=== PATIENT | male | born 1935 | race Caucasian/White ===

== ENCOUNTER 2016-11-22 08:17 | Emergency (ER) | payer MEDICARE, OTHER ==
[2016-11-22 08:25] VITALS: BP 145/64
--- NOTE | 2016-11-22 09:08 | UC ---
Skin Complaint HPI - HPI Summary HPI Summary: HAD AN INSECT BITE LEFT POSTERIOR THIGH NOTICED 3 DAYS AGO. MAY HAVE BEEN A TICK. 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 NO FEVER, CHI OR BODY ACHES. - History of Current Complaint Chief Complaint: UCSkin Time Seen by Provider: 11/22/16 08:30 Stated Complaint: TICK BITE Hx Obtained From: Patient Onset/Duration: Gradual Onset, Still Present Onset Severity: Mild Current Severity: Mild Pain Intensity: 0 Pain Scale Used: 0-10 Numeric Location: Discrete Character: Redness, Raised Aggravating Factor(s): Touch Alleviating Factor(s): Nothing Associated Signs & Symptoms: Positive: Negative Related History: Insect Bite/Sting - Allergy/Home Medications Allergies/Adverse Reactions: Allergies Allergy/AdvReac Type Severity Reaction Status Date / Time No Known Allergies Allergy Verified 11/30/13 11:01 Home Medications: Home Medications Amlodipine Besylate [Norvasc 2.5 mg tab] 2.5 mg PO DAILY 11/22/16 [History Confirmed 11/22/16] Aspirin [Aspirin 81 MG TAB] 81 mg PO 11/22/16 [History] Tamsulosin HCl [Flomax] 0.4 mg PO 11/22/16 [History] Review of Systems Constitutional: Negative Skin: Rash Respiratory: Negative Cardiovascular: Negative Gastrointestinal: Negative All Other Systems Reviewed And Are Negative: Yes PMH/Surg Hx/FS Hx/Imm Hx Cardiovascular History: Cardiac Disease - VALVE REPLACED Other Cancer History: SKIN CANCER - Surgical History Surgical History: Yes Surgery Procedure, Year, and Place: growth on neck at ; skin cancer ear and chest, cataracts removed - Family History Known Family History: Negative: Hypertension, Diabetes - Social History Alcohol Use: Occasionally Substance Use Type: None Smoking Status (MU): Former Smoker Have You Smoked in the Last Year: No When Did the Patient Quit Smoking/Using Tobacco: 1974 - Immunization History Most Recent Influenza Vaccination: 2016 Most Recent Tetanus Shot: Unknown Most Recent Pneumonia Vaccination: about 5 years ago Physical Exam Triage Information Reviewed: Yes Appearance: Well-Appearing, No Pain Distress, Well-Nourished Vital Signs: Initial Vital Signs Temp 98.5 F 11/22/16 08:19 Pulse 92 11/22/16 08:19 Resp 18 11/22/16 08:19 BP 145/64 11/22/16 08:19 Pulse Ox 100 11/22/16 08:19 Vital Signs Reviewed: Yes Eyes: Positive: Conjunctiva Clear ENT: Positive: Hearing grossly normal Neck: Positive: Supple Respiratory: Positive: No respiratory distress, No accessory muscle use Cardiovascular: Positive: Pulses Normal Abdomen Description: Positive: Soft Musculoskeletal: Positive: No Edema Neurological: Positive: Alert Psychological: Positive: Age Appropriate Behavior Skin: Positive: Other - 6 CM DIAMETER AREA OF ERYTHEMA LEFT POSTERIOR THIGH WITH 1.5CM CENTRAL AREA OF INDURATION. SLIGHTLY TENDER Course/Dx - Course Course Of Treatment: WILL TREAT FOR CELLULITIS. NO SIGN OF LYME TODAY. ADVISED PT TO BE VIGILANT AND SEEK F/U IF NEEDED. - Diagnoses Provider Diagnoses: CELLULITIS POSTERIOR LEFT THIGH Discharge - Discharge Plan Condition: Stable Disposition: HOME Prescriptions: Cephalexin CAP* [Keflex 500 CAP*] 1,000 mg PO BID #28 cap Patient Education Materials: Cellulitis (ED) Referrals: Samuel Borrero MD [Medical Doctor] - If Needed Additional Instructions: WE WILL TREAT YOU FOR A SKIN INFECTION TODAY. TAKE THE ANTIBIOTICS TWICE DAILY FOR 7 DAYS. IT MAY HAVE BEEN A TICK BITE OR A BITE FROM ANOTHER INSECT. BE VIGILANT OF YOUR SYMPTOMS OVER THE NEXT FEW WEEKS AND SEEK FOLLOW-UP IF YOU DEVELOP FEVER, HEADACHES, BODY ACHES, MALAISE, RASHES OR ANY OTHER CONCERNING SYMPTOMS.
== END 2016-11-22 09:16 | disposition home or self-care (01) ==
LOC: UCEAST 08:17
DX: L03.116 Cellulitis of left lower limb (principal); Z79.82 Long term (current) use of aspirin; Z85.828 Personal history of other malignant neoplasm of skin; Z87.891 Personal history of nicotine dependence
CPT/HCPCS: 99202; G0463

== ENCOUNTER 2018-02-27 08:03 | Inpatient (IN) | payer MEDICARE, OTHER ==
--- NOTE | 2018-02-27 08:23 | ED ---
Altered Mental Status - HPI Summary HPI Summary: This pt is an 83 y/o male presenting to [facility] for altered mental status. reports the pt went out to get the paper and found him lying on the floor of the garage with his head against the wall. Pt had an unwitnessed fall. Pt does not remember passing out or falling. At baseline, pt is not confused per . Pt denies dizziness, visual changes, nausea, headache, SOB, chest pain. states this is the third time this has happened this week where pt has fallen and has been confused. At first thought pt had just fallen on ice last time and didn't think too much of it. PMHx aortic heart valve replacement 2 years ago in [place]. He had cardiac cath with Dr. Guan in Dec 2015 and was then transferred to [facility]. notes pt has followed up with Dr. Guan at his office in [facility]. denies anticoagulants. No hx of afib. HPI IS LIMITED DUE TO LEVEL 5 CAVEAT - pt with AMS - History Of Current Complaint Chief Complaint: EDSyncope Stated Complaint: AMS/SYNCOPE Hx Obtained From: Family/Body Corporate Manager - Hx From Patient Unobtainable Due To: Altered Mental Status Onset/Duration: Still Present Timing: Intermittent, Lasting Days Severity Currently: Moderate Character: Confusion Aggravating Factor(s): Unknown Alleviating Factor(s): Unknown Associated Signs And Symptoms: Positive: Recent Trauma - Allergies/Home Medications Allergies/Adverse Reactions: Allergies Allergy/AdvReac Type Severity Reaction Status Date / Time No Known Allergies Allergy Verified 02/27/18 08:10 Home Medications: Home Medications Amlodipine Besylate/Benazepril [Lotrel 5-10 mg] 1 cap PO DAILY 02/27/18 [ History Confirmed 02/27/18] Amoxicillin PO (*) [Amoxicillin 500 MG CAP*] 2,000 mg PO ONCE 02/27/18 [History Confirmed 02/27/18] Aspirin EC TAB* [Ecotrin EC Low Dose 81 MG*] 81 mg PO DAILY 02/27/18 [History Confirmed 02/27/18] Tamsulosin CAP* [Flomax CAP*] 0.4 mg PO DAILY 02/27/18 [History Confirmed ] PMH/Surg Hx/FS Hx/Imm Hx Endocrine/Hematology History: Denies: Hx Diabetes, Hx Thyroid Disease Cardiovascular History: Reports: Other Cardiovascular Problems/Disorders - heart valve replaced Denies: Hx Hypertension Respiratory History: Denies: Hx Asthma, Hx Chronic Obstructive Pulmonary Disease (COPD) GI History: Denies: Hx Ulcer Sensory History: Reports: Hx Cataracts - Removed, Hx Contacts or Glasses - For reading Opthamlomology History: Reports: Hx Cataracts - Removed, Hx Contacts or Glasses - For reading - Cancer History Cancer Type, Location and Year: skin cancers - Surgical History Surgery Procedure, Year, and Place: growth on neck at ; skin cancer ear and chest, cataracts removed Infectious Disease History: No Infectious Disease History: Denies: Hx Clostridium Difficile, Hx Hepatitis, Hx Human Immunodeficiency Virus (HIV), Hx of Known/Suspected MRSA, Hx Shingles, Hx Tuberculosis, Hx Known/ Suspected VRE, Hx Known/Suspected VRSA, History Other Infectious Disease, Traveled Outside the [place] in Last 30 Days - Family History Known Family History: Negative: Hypertension, Diabetes - Social History Alcohol Use: Occasionally Substance Use Type: Reports: None Smoking Status (MU): Former Smoker Have You Smoked in the Last Year: No Review of Systems - ROS Summary Review of Systems Summary: ROS IS LIMITED DUE TO LEVEL 5 CAVEAT - AMS Negative: Fever Negative: Other - NEG: visual changes Negative: Chest Pain Negative: Shortness Of Breath Negative: Nausea Neurological: Other - POS: confused. NEG: dizziness Positive: Syncope. Negative: Headache All Other Systems Reviewed And Are Negative: No Physical Exam - Summary Physical Exam Summary: Appearance: Alert, conversive, nontoxic appearing Skin: Warm, dry, no mottling, no rashes, no contusions HEENT: EOMI, PERRL, tongue is dry but midline Neck: No masses on the neck, supple Respiratory: Clear to auscultation, breath sounds present, no rales, no rhonchi , no wheezes Cardiovascular: RRR, pulses are symmetrical in both lower and upper extremities. Aortic systolic ejection murmur. Abdomen: Soft, non-tender Bowel Sounds: Present Musculoskeletal: No CVA tenderness, no obvious deformity, moving all extremities in a grossly normal manner Neurological: A&Ox3, CN II-XII Intact, moving all extremities symmetrically Psychiatric: Normal affect and mood Triage Information Reviewed: Yes Vital Signs On Initial Exam: Initial Vitals Temp Pulse Resp BP Pulse Ox 97.3 F 112 17 144/81 98 02/27/18 08:04 02/27/18 08:04 02/27/18 08:04 02/27/18 08:04 02/27/18 08:04 Vital Signs Reviewed: Yes Completion Of Physical Exam Limited Due To: Level 5 - AMS Diagnostics - Vital Signs Vital Signs Temp Pulse Resp BP Pulse Ox 02/27/18 08:04 97.3 F 112 17 144/81 98 - Laboratory Result Diagrams: 02/27/18 08:35 02/27/18 08:35 Lab Statement: Any lab studies that have been ordered have been reviewed, and results considered in the medical decision making process. - Radiology Chest XR Radiology Interpretation Completed By: Radiologist Summary of Radiographic Findings: IMPRESSION: Postoperative changes. No active cardiopulmonary disease is noted. Dr. Velez has reviewed this report. - CT Brain CT CT Interpretation Completed By: Radiologist Summary of CT Findings: IMPRESSION: No acute intracranial pathology. Dr. Velez has reviewed this report. Cervical spine CT CT Interpretation Completed By: Radiologist Summary of CT Findings: IMPRESSION: Multilevel degenerative disc disease without evidence of fracture. Dr. Velez has reviewed this report. - EKG 0830 Cardiac Rate: NL - at 95 bpm EKG Rhythm: Sinus Rhythm 08:30 Cardiac Rate: NL - at 95 bpm EKG Rhythm: Sinus Rhythm Ectopy: PACs - Additional Comments Diagnostic Additional Comments: Transthoracic Echocardiogram Conclusions Mild concentric left ventricular hypertrophy is observed. The left ventricle appears hyperdynamic. The estimated ejection fraction is 60-65%. There is an E to A reversal in the mitral valve flow pattern suggestive of diastolic dysfunction. The right ventricular chamber size and systolic function are within normal limits. 4 The bioprosthetic aortic valve leaflets are normal. thin with normal excursion. There is a trace of aortic regurgitation. The mean gradient of the aortic valve is 16 mmHg. The aortic valve area, by VTI's, is calculated at 1.4 cm2. Moderate mitral annular calcification present. There is mild mitral regurgitation. There is mild mitral stenosis; - The mean gradient across the mitral valve is 6 mmHg. - The pressure half time of the mitral valve is 130 msec. There is mild to moderate pulmonic regurgitation. Compared with prior echo of 12/09/14 (pre AVR), bioprosthetic valve is new, mean gradient has decreased from 50 mmHg, MR and MS are stable, TR stable, PI previously trace to mild. LVH seen previously and has improved, prior EF 55-60%. Altered Mental Statu Course/Dx - Course Assessment/Plan: Pt is an 83 y/o male who presents to the ED for altered mental status. reports the pt went out to get the paper and found him lying on the floor of the garage with his head against the wall. Pt does not remember passing out or falling. notes this is third episode this week of falling and confusion. Blood work remarkable for hemoglobin of 13.3, hematocrit of 39, platelet count of 117, glucose of 147. Brain CT shows no acute intracranial pathology. Cervical spine CT reveals multilevel degenerative disc disease without evidence of fracture. Chest XR shows postoperative changes. No active cardiopulmonary disease is noted. I discussed with Dr. Carvajal, press setup operator, who reports EKG is sinus rhythm. Spoke with Dr. Gonzales, hospitalist, who accepted pt for admission. - Diagnoses Provider Diagnoses: Syncope - Provider Notifications Discussed Care Of Patient With: Urmila Carvajal Time Discussed With Above Provider: 10:23 Instructed by Provider To: Other - I discussed with Dr. Carvajal, press setup operator, who reports EKG is sinus rhythm. Discharge - Sign-Out/Discharge Documenting (check all that apply): Patient Departure - Admit to [facility] All imaging exams completed and their final reports reviewed: Yes - Discharge Plan Condition: Stable Disposition: ADMITTED TO [facility] - Billing Disposition and Condition Condition: STABLE Disposition: Admitted to [facility] - Attestation Statements Document Initiated by Mamadoue: Yes Documenting Scribe: Stefania Gregg Provider For Whom Celestina is Documenting (Include Credential): Katharine Velez MD Scribe Attestation: IStefania, scribed for Katharine Velez MD on 02/27/18 at 1810. Scribe Documentation Reviewed: Yes Provider Attestation: The documentation as recorded by the Stefania koehler accurately reflects the service I personally performed and the decisions made by me, Katharine Velez MD Status of Scribe Document: Viewed
[2018-02-27 08:41] LABS: ABS Basophils 0 10^3/ul (0-0.2); ABS Eosinophils 0 10^3/ul (0-0.6); ABS Lymphocytes 0.7 10^3/ul (1.0-4.8); ABS Monocytes 0.3 10^3/ul (0-0.8); ABS Neutrophils 5.3 10^3/ul (1.5-7.7); ABS Nucleated RBC 0 10^3/ul; Eosinophil % 0.2 %; Hematocrit 39 % (42-52); Hemoglobin 13.3 g/dl (14.0-18.0); Lymphocyte % 10.4 %; Mean Corpuscular HGB Conc 34 g/dl (31-36); Mean Corpuscular Hemoglobin 32 pg (27-31); Mean Corpuscular Volume 93 fL (80-94); Mean Platelet Volume 8.1 fL (7.4-10.4); Nucleated Red Blood Cells % 0.1; Platelet Count 117 10^3/ul (150-450); Red Cell Distribution Width 14 % (10.5-15); White Blood Count 6.3 10^3/ul (3.5-10.8)
[2018-02-27 08:50] LABS: INR 0.93 (0.77-1.02)
[2018-02-27 08:58] LABS: Albumin 4.3 g/dL (3.2-5.2); Albumin/Globulin Ratio 1.7 (1-3); BUN/Creatinine Ratio 20.7 (8-20); EGFR African American 69.3 (>60); EGFR Non-African American 57.3 (>60); Globulin 2.5 g/dL (2-4); Potassium 4.2 mmol/L (3.5-5.0); Total Bilirubin 0.7 mg/dL (0.2-1.0); Total Protein 6.8 g/dL (6.4-8.9)
[2018-02-27 09:33] LABS: TSH (Thyroid Stimulating Horm) 3.27 mcIU/mL (0.34-5.60)
[2018-02-27 12:33] LABS: Urine Appearance Clear; Urine Bacteria Absent (Absent); Urine Bilirubin Negative (Negative); Urine Blood 2+ (Negative); Urine Color Yellow; Urine Glucose Negative (Negative); Urine Ketones Negative (Negative); Urine Nitrite Negative (Negative); Urine Protein Negative (Negative); Urine Red Blood Cell 3+(>10/hpf) (Absent); Urine Specific Gravity 1.012 (1.010-1.030); Urine Squamous Epithelial Cell Present (Absent); Urine Urobilinogen Negative (Negative); Urine White Blood Cell Trace(0-5/hpf) (Absent)
--- NOTE | 2018-02-27 13:06 | ECHO ---
Patient: RICHI GRIFFITHS [facility] Rec#: [id number] : Date: 02/27/2018 Age: 89y Height: 187.96 cm / 74.0 in Weight: 86.18 kg / 189.9 lbs Sex: M BSA: 2.13 Room#: ED 11 Admit Date#: 02/27/2018 Type: Inpatient Referring: Jake Eagle NP Reading: Urmila Carvajal MD Beef Grinder: Lori Horton,AYSECS,RDMS CC: Samuel Borrero MD Transthoracic Echocardiogram Indication: Syncope BP: 140/73 HR: 103 Rhythm: NSR Findings History: AOV replacement, 2nd degree heart block Technical Comments: The study quality is good. Left Ventricle: The left ventricular chamber size is normal. Mild concentric left ventricular hypertrophy is observed. There is a prominent septal knuckle. The left ventricle appears hyperdynamic. The estimated ejection fraction is 60-65%. Ventricular septal wall motion has a post-operative appearance. There is an E to A reversal in the mitral valve flow pattern suggestive of diastolic dysfunction. Left Atrium: The left atrial chamber size is normal. Right Ventricle: The right ventricular chamber size and systolic function are within normal limits. Right Atrium: The right atrium is mildly dilated. Aortic Valve: There is a trace of aortic regurgitation. The mean gradient of the aortic valve is 16 mmHg. The aortic valve area, by VTI's, is calculated at 1.4 cm2. The highest aortic valve velocity was obtained with the standard probe from the A3C view. A bio-prosthetic aortic valve is present. The prosthetic aortic valve leaflets are normal. thin with normal excursion. Mitral Valve: Moderate mitral annular calcification present. Moderate mitral leaflet calcification is visualized. Mitral valve leaflet mobility is mildly restricted. There is mild mitral regurgitation. There is mild mitral stenosis. The mean gradient across the mitral valve is 6 mmHg. The pressure half time of the mitral valve is 130 msec. Tricuspid Valve: The tricuspid valve leaflets are normal. There is trace tricuspid regurgitation. Unable to estimate the right ventricular systolic pressure. Pulmonic Valve: There is no evidence of pulmonic valve thickening. There is mild to moderate pulmonic regurgitation. Pericardium: There is no significant pericardial effusion. Aorta: The ascending aorta is not well visualized. The aortic arch is not well visualized. The aortic root is normal in size. Pulmonary Artery: The main pulmonary artery is not well visualized. Venous: The inferior vena cava is not visualized. Conclusions Mild concentric left ventricular hypertrophy is observed. The left ventricle appears hyperdynamic. The estimated ejection fraction is 60-65%. There is an E to A reversal in the mitral valve flow pattern suggestive of diastolic dysfunction. The right ventricular chamber size and systolic function are within normal limits. The bioprosthetic aortic valve leaflets are normal. thin with normal excursion. There is a trace of aortic regurgitation. The mean gradient of the aortic valve is 16 mmHg. The aortic valve area, by VTI's, is calculated at 1.4 cm2. Moderate mitral annular calcification present. There is mild mitral regurgitation. There is mild mitral stenosis: -The mean gradient across the mitral valve is 6 mmHg. -The pressure half time of the mitral valve is 130 msec. There is mild to moderate pulmonic regurgitation. Compared with prior echo of 12/09/14 (pre AVR), bioprosthetic valve is new, mean gradient has decreased from 50 mmHg, MR and MS are stable, TR stable, PI previously trace to mild. LVH seen previously and has improved, prior EF 55-60% Measurements Name Value Normal Range RVIDd (AP) 2D 2.5 cm (0.9 - 2.6) RVDdMajor (2D) 2.8 cm (2.2 - 4.4) RAd ISD 4CH 5.9 cm (3.4 - 4.9) RA (A4C)W 4.1 cm (2.9 - 4.6) IVSd (2D) 1.4 cm (0.6 - 1) LVPWd (2D) 1.1 cm (0.6 - 1) LVIDd (2D) 4.3 cm (3.6 - 5.4) LVIDs (2D) 2.6 cm - LV FS (2D) 40 % (25 - 45) Aortic Annulus 1.8 cm (1.4 - 2.6) Ao root diameter (2D) 3.4 cm (2.1 - 3.5) LA dimension (AP) 2D 4 cm (2.3 - 3.8) LAd ISD 4CH 6.4 cm (2.9 - 5.3) LA ISD 4CH W 4.3 cm (2.5 - 4.5) Name Value Normal Range LA ESV SP 4CH (A/L) 51.2 ml - LA ESV SP 2CH (A/L) 69.69 ml - LA ESV BP (A/L) 60.81 ml - LA ESV BP (A/L) index 29 ml/m2 - LA ESV SP 4CH (MOD) 47.08 ml - LA ESV SP 2CH (MOD) 64.96 ml - Name Value Normal Range MV E-wave Vmax 1.2 m/sec - MV deceleration time 151 msec - MV A-wave Vmax 1.9 m/sec - MV E:A ratio 0.7 ratio - LV septal e' Vmax 0.1 m/sec - LV lateral e' Vmax 0.15 m/sec - LV E:e' septal ratio 12 ratio - LV E:e' lateral ratio 8 ratio - Name Value Normal Range AV Vmax 2.9 m/sec - AV VTI 48 cm - AV peak gradient 34 mmHg - AV mean gradient 16 mmHg - LVOT diameter 1.9 cm - LVOT Vmax 1.2 m/sec - LVOT VTI 23 cm - LVOT peak gradient 6 mmHg - LVOT mean gradient 3 mmHg - DOI (VTI) 0.5 ratio - WILSON (continuity Vmax) 1.2 cm2 - WILSON (continuity VTI) 1.4 cm2 - Name Value Normal Range MV Vmax 1.8 m/sec - MV VTI 45.2 cm - MV peak gradient 13 mmHg - MV mean gradient 6 mmHg - MV PHT 130 msec - MVA (PHT) 1.7 cm2 - MVA (continuity VTI) 1.4 cm2 - Name Value Normal Range RAP 8 mmHg - Name Value Normal Range PV Vmax 1 m/sec - PV peak gradient 4 mmHg -
[2018-02-27] MEDS ORDERED: Acetaminophen TAB* 325 MG PO PRN (13:17)
[2018-02-27] MEDS ORDERED: NS 0.9% 1000 ML* 1,000 ML IV SCH (13:30)
[2018-02-27] MEDS ORDERED: ceFAZolin 2 GM PREMIX in ORs 2 GM/50 ML BAG IVPB ONE (13:56)
[2018-02-27] MEDS ORDERED: fentaNYL* 50 MCG/ML 2 ML VIAL (100 MCG VIAL) ONE (14:17)
[2018-02-27] MEDS ORDERED: Iohexol 300* (CONTRAST) 10 ML SDV ONE ×2 (14:17→15:06)
[2018-02-27] MEDS ORDERED: Midazolam* 1 MG/ML 5 ML VIAL (5 MG) ONE (14:17)
[2018-02-27] MEDS ORDERED: Lidocaine 1% INJ* 10 MG/ML 30 ML SDV ONE (14:29)
[2018-02-27] MEDS: NS 0.9% 1000 ML* 1,000 ML IV SCH (17:06)
--- NOTE | 2018-02-27 18:42 | HP ---
CC: Dr. Samuel Borrero; Dr. Carvajal; Dr. Guan * HISTORY AND PHYSICAL: DATE OF ADMISSION: 02/27/18 PRIMARY CARE PROVIDER: Dr. Smauel Borrero. CONSULTING SUPERVISOR BURLING AND JOINING: Dr. Carvajal. PRIMARY SUPERVISOR BURLING AND JOINING: Dr. Guan. ATTENDING PHYSICIAN WHILE IN THE HOSPITAL: Dr. Seema Gonzales * (report dictated by Jake Eagle NP). CHIEF COMPLAINT: Syncope. HISTORY OF PRESENT ILLNESS: Mr. Jiménez is an 83-year-old male patient who has a history of syncope, has a history of severe aortic stenosis status post valve replacement with a pig valve, history of hypertension, skin cancer and vitamin B12 deficiency, who is coming into our ER today stating that he has had 3 episodes with last week of syncope, 2 of which have been with exertion, the most recent one was today when he was walking back from the driveway getting his mail and he went down. He had no warning. He had no chest pain prior to or after. He had no aura. He had no headache prior to this, no shortness of breath. He was feeling fine he says when he fainted. The next thing he knew his found him and she was concerned because this is a third time it has happened. It happened another time while he was shoveling, but again with no shortness of breath, chest pain prior to or after these events. No lightheadedness or dizziness and no tunnel vision. He also had an episode while looking out the window, not really exerting himself. He was concerned because he had episodes like this previously with his valve when he had critical and he came into the ER. The patient while here in the ER had significant episodes of pauses. Dr. Carvajal was consulted urgently. He denies having any rashes. Again, no chest pain, no recent abdominal pain, no vomiting or diarrhea. He denied having any constipation and he says again these episodes have happened twice with exertion and now they have been happening here in the ER while laying in the stretcher. Because of the syncopal episode and possible sick sinus syndrome, we were asked to evaluate for admission. PAST MEDICAL HISTORY: Significant for: 1. Syncope. 2. Aortic stenosis, status post aortic valve replacement. 3. Hypertension. 4. Skin cancer. 5. B12 deficiency. PAST SURGICAL HISTORY: 1. He has had a cyst removed from his neck. 2. Cardiac catheterization 3 years ago, in which he had no coronary artery disease. 3. Aortic valve replacement, which was porcine. HOME MEDICATIONS: Include: 1. Amlodipine/benazepril 1 capsule p.o. daily. 2. Aspirin 81 mg daily. 3. Amoxicillin 2000 mg p.o. as directed. 4. Flomax 0.4 mg p.o. daily. ALLERGIES TO MEDICATIONS: Include no known drug allergies. FAMILY HISTORY: Mother had heart disease. Father had a history of throat cancer. SOCIAL HISTORY: He does not smoke. He occasionally drinks. Surrogate decision maker is his . 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 REVIEW OF SYSTEMS: There is no documented fever. He denied having any significant weight change. There is no double vision. He denied having any ear discharge. There was no rhinorrhea. There was no sore throat. No thyroid enlargement. He denied having any chest pain. There is no orthopnea. There is no nocturnal dyspnea. He denied having any abdominal pain. There was no nausea, no vomiting. There is no dysuria. There is no frequency. There is no seizure. There was loss of consciousness. No pruritus and no skin ulcerations. Review of 14 systems was completed, all others negative. PHYSICAL EXAMINATION GENERAL: At this time, Mr. Jiménez is an 83-year-old male patient. He was sitting in the ED stretcher. He does not appear to be in any acute distress. He appears to be well nourished and well developed. VITAL SIGNS: Blood pressure 141/73 with pulse 103, respirations 20, O2 sat of 100%, temperature 97.3. HEENT: Head: Atraumatic and normocephalic. Eyes: EOMs are intact. Sclerae anicteric and not pale. Throat: Oral mucosa appears to be moist. No oropharyngeal erythema. NECK: Supple. LUNGS: Clear to auscultation bilaterally. No wheezes, rales, or rhonchi. HEART: Sounds S1, S2. He had a regular rate and rhythm. He did have a grade 2 to 3 murmur in the aortic listening area. ABDOMEN: Soft, it was flat, nontender. Bowel sounds are present. EXTREMITIES: Pulses were 2+ throughout and moving all 4 extremities with 5/5 strength. NEUROLOGIC: He is awake. He is alert. He is oriented x3. No gross focal deficits. SKIN: Intact. DIAGNOSTIC STUDIES/LAB DATA: WBC of 6.3, RBC of 4.20, hemoglobin of 13.3, hematocrit 39; platelet count of 117. INR 0.93, PTT of 26. Sodium 137, potassium 4.2, chloride of 104, bicarb 26, BUN 25, creatinine of 1.21, which is near his baseline. Glucose is 147, lactic 1, calcium 9.0, mag 2.0, total bili 0.7, AST 22, ALT 17, alk phos 50. Troponin was 0. TSH was normal. Urine showed 2+ blood, 3+ RBC. He had a brain CT which showed no acute intracranial pathology. He had a cervical spine CT, which showed multilevel degenerative disk disease without evidence of fracture. He had a chest x-ray obtained today, which showed postoperative changes, no active cardiopulmonary disease. Joyce viera had an echo obtained today, which showed EF of 60% to 65%, the mean gradient of the aortic valve was 16. There is mild mitral stenosis, mild mitral regurge. Compared to the previous echo, the MR and MS are stable. TR stable. LVH was seen previously and has improved. EF is 55% to 60%. He had an EKG obtained today, which appear to be a normal sinus rhythm with a first degree AV block. He does have PACs and a PVC. No ST elevations or T- wave inversions are noted. Old medical records were reviewed. ASSESSMENT AND PLAN: Mr. Jiménez is an 83-year-old male patient coming into the ED today with complaints of syncopal episode. While he is here in the ED, he had several pauses while at rest. We were asked to evaluate for admission. He will be admitted under inpatient status for: 1. Sick sinus syndrome and syncope. I suspect the cause of this is in fact he has been having frequent pauses and most likely will require a pacemaker. Dr. Carvajal did evaluate the patient urgently and will be taking him for pacemaker today. I will defer further management to her. I did send off a Lyme panel and we will continue to follow him closely, but again I suspect the cause of syncope is from sick sinus syndrome. 2. Aortic stenosis. Echo shows that his valve is stable. 3. Hypertension. I am holding his medications until we again have a pacemaker placement. 4. Skin cancer. Follow up with PCP. 5. Vitamin B12 deficiency. Follow with PCP. 6. DVT prophylaxis: He will be placed on heparin subcu when it is deemed appropriate by Cardiology. 7. Code status: Full code. 8. Fluids, electrolytes, and nutrition: NPO pending pacemaker placement. TIME SPENT: Time spent on the admission which was critical care time 70 minutes, greater than half of the time was spent [id number] with the patient obtaining my history and physical, other half of the time was spent going over the plan of care with the patient and implementing plan of care. I did discuss the plan of care with my attending, Dr. Goznales, and she is in agreement. JAKE EAGLE NP [id number]/CPS #: [id number] MARY
--- NOTE | 2018-02-27 19:08 | CONS ---
CC: Dr. Samuel Borrero, Hospitalist Service; Dr. Guan * CARDIOLOGY CONSULTATION REPORT: DATE OF CONSULT: 02/27/18 REASON FOR CONSULT: Syncope and heart block. CHIEF COMPLAINT: Loss of consciousness. HISTORY OF PRESENT ILLNESS: Mr. Jiménez is an 83-year-old gentleman followed by my partner Dr. Lee Guan for aortic valve disease with aortic valve replacement in December 2015 for aortic stenosis. The patient was in his usual state of health until this week when he had several episodes of loss of consciousness. His and two sons were present and they were able to provide a bit more history than the patient did. Today, the patient had an unwitnessed fall, was brought in by his family, found to be confused and disoriented; however, his mentation improved while he was in the emergency department. He and his family describe several episodes of loss of consciousness within the last 3 days typically with the activity. While the patient was in the emergency department, he had sinus rhythm with frequent PACs but he also had several episodes of sinus rhythm with complete heart block for up to 10 seconds. The longer episodes were associated with loss of consciousness followed by a period of disorientation and mild agitation. The patient was on no rate lowering agents. The patient and his family denied any new medications since he was seen by Dr. Guan in October of 2017. He said he had a Lyme exposure about 4 years ago but was treated. He denies any fevers, chills, respiratory infection, no coughing. He takes medication for his prostate but he has had no recent problems. He has occasional constipation but none recently. PAST MEDICAL HISTORY: The patient has a past medical history of: 1. Aortic valve stenosis with aortic valve replacement (#23 Magna bioprosthetic valve, 12/16/15, at [facility]). 2. Hypertension. 3. Benign prostatic hypertrophy. 4. The patient had a heart catheterization and had normal coronary arteries in 2016. 5. B12 deficiency. MEDICATIONS: Current outpatient medications include: 1. Amlodipine/benazepril 5/10 mg daily. 2. Tamsulosin 0.4 mg a day. 3. Vitamin B12 1000 mcg/mL with 1 mm IM q.4 weeks. 4. Aspirin 81 mg a day. 5. Amoxicillin dental prophylaxis. ALLERGIES: The patient has no known drug allergies. FAMILY HISTORY: Significant in his father who had a pacemaker, his mother of a heart attack, his father had a history of throat cancer. 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 He has 2 sons and a supportive . He smoked distantly and quit in 1974. Occasional alcohol intake (beer), very active according to his family doing all kinds of chores including stacking wood, shoveling snow with no problems until the last 3 days or so. PHYSICAL EXAM: On exam, the patient is 6 feet 2 inches, weighs 177 pounds with a BMI of 23. Vital signs most recently: Blood pressure 126/69; pulse was 88, sinus rhythm; oxygen saturation 99% on room air; respiratory rate 19. General Appearance: Lean, fit-appearing elderly gentleman, lying in bed, appears psychologically anxious. A little taciturn in his answers but awake, alert, and oriented to person and place, I did not check for time. Skin: Age- appropriate changes. HEENT: Pupils were equal and round. Mucous membranes a bit dry. Neck without increased JVP or thyromegaly. Breath sounds with few rhonchi that cleared with coughing. No rales or wheezing. Coronary: S1, S2, regular, soft 1/6 early peaking systolic murmur in the right upper sternal border. No diastolic murmurs. Abdomen: Flat, active bowel sounds, soft, nontender. No hepatosplenomegaly or masses. Lower extremities were free of edema and warmth. DIAGNOSTIC STUDIES/LAB DATA: A 12-lead ECG done on arrival showed normal sinus rhythm at 95 beats a minute with occasional PACs and blocked PACs. QRS axis + 30 with the first degree AV block, normal interventricular conduction times, unremarkable STs. Rhythm strip showed normal sinus rhythm alternating with sinus rhythm and complete heart block for up to 10 seconds as described above. Labs: White count 6.3, hematocrit 39, platelets 117. INR 0.93, PTT 26. Sodium 137, potassium 4.2, chloride 104, bicarb 26, BUN 25, creatinine 1.2, glucose 147, lactic acid 1, calcium 9.0, magnesium 2.0. Normal transaminases. Troponin #1, 0.00; troponin #2, 0.01. TSH 3.27. Urinalysis was 2+ for blood, negative for nitrite, negative for esterase. Lyme titers had been sent, may be worth looking for urinary tract infection, although the urinalysis is unremarkable, but I do not understand why he has blood either. ASSESSMENT AND PLAN: In summary, Mr. Jiménez is an 83-year-old gentleman who presented with several syncopal episodes this week including this morning with evidence of intermittent complete heart block without evidence of an obvious precipitating factor such as increased vagal tone or new medication. This is consistent with infra-Hisian block possibly related to age, possibly related to calcification from his severe aortic stenosis that is now involved the conduction system. It is possible also that he has had Lyme exposure. I recommended immediate dual-chamber pacemaker implantation as these episodes were happening recurrently in the emergency department without obvious precipitation. The indications, risks, and benefits had been discussed with the patient and his family and all were amenable to proceeding. He underwent urgent dual chamber pacer implantation without complications. I recommended we hold his antihypertensives for now and can resume them if his blood pressure rises. Additional recommendations will be made pending his clinical course post pacemaker implantation. Thank you for allowing me to assist in this nice gentleman's care. [id number]/[facility] #: [id number] MARY
--- NOTE | 2018-02-27 20:44 | OP ---
CC: Dr. Lee Guan; Dr. Samuel Borrero OPERATIVE NOTE: DATE OF PROCEDURE: 02/27/18 SURGEON: Urmila Carvajal MD ANESTHESIA: MAC. PRE-OP DIAGNOSIS: Intermittent third degree heart block with syncope. POST-OP DIAGNOSIS: Intermittent third degree heart block with syncope. OPERATIVE PROCEDURE: Dual-chamber pacemaker implantation. ESTIMATED BLOOD LOSS: Less than 5 cc. COMPLICATIONS: None. HISTORY: The patient arrived to the ER following syncopal episode and we had witnessed sinus rhythm with complete heart block for up to 10 seconds. The patient has had coffee in the morning, but otherwise not had any meals and indications, risks and benefits for pacemaker implantation were explained to the patient in the presence of his and 2 sons in the emergency room. He was amenable to proceeding. DESCRIPTION OF PROCEDURE: The patient is right handed and the left subclavian fossa was prepped and draped in the usual sterile fashion. A time-out was called. The patient received 10 cc of radiopaque dye in the left upper extremity outlining the left axillary and left subclavian veins. Following this , the patient received 1% lidocaine locally in left subclavian fossa for local anesthesia and following this, using a 10-blade knife, a 2-cm incision was made and using Bovie and blunt dissection, it was extended to the level of the pectoralis muscle. Using Metzenbaum scissors, a small koko was made inferiorly and medially and additional lidocaine was infused inferiorly and medially. Following lidocaine, using blunt dissection, a small pocket was fashioned. Using modified Seldinger technique, the left subclavian vein was cannulated. Took the assistance of another 10 cc of radiopaque dye, the patient had moved following a pause. There was difficulty getting a second guidewire, so using an introducer second guidewire was placed. We then inserted the ventricular lead into the right ventricular apex. Alligator clips were on, so he could pace if needed. The lead was placed in the right ventricular apex, actively fixed and placed. Pacing and sensing thresholds were checked and found to be good. Using the second guidewire and a second introducer, the right atrial lead was guided into the right atrial appendage. It was actively fixed and placed. Pacing and sensing thresholds were checked and found to be good. High out put tested and no evidence of diaphragmatic pacing noted. Care was taken to ensure adequate slack of both leads, then they were sutured to the pocket using 0-silk suture. The ventricular lead was then attached to the device after wiping the lead with saline. The pocket was then copiously irrigated with normal saline. The atrial lead was then attached to the device. Device was placed in the pocket and the incision was closed using 2 layers of absorbable suture, 2-0 followed by 4-0, followed by my and external dressings. FINDINGS: It is an MRI compatible Medtronic system. The pacemaker is a Medtronic Stephanie XTDR MRI SureScan, model W1DR01, serial number [id number]. The atrial lead is a Medtronic model 5076-52, serial number [id number]. The ventricular lead is a Medtronic model 5076-58, serial number [id number]. The atrial lead senses P waves of 2.7 millivolts with an atrial lead impedance of 545 ohms and an atrial pacing threshold of 0.8 volts at 0.5 msec. The ventricular lead senses R waves of 11.5 millivolts with a ventricular lead impedance of 1010 ohms with a ventricular pacing threshold of 0.7 volts at 0.5 msec. The patient was hemodynamically stable throughout the procedure, relative hypotension in the 100s that responded to IV fluid. He was stable and talking at the time of transfer to the floor. [id number]/[facility] #: [id number] MARY
[2018-02-27] MEDS: ceFAZolin 1 GM VIAL(*) 1 GM in NS 0.9% 50 ML* 50 ML IVPB SCH (22:22)
[2018-02-28] MEDS: NS 0.9% 1000 ML* 1,000 ML IV SCH ×2 (01:16→09:34)
[2018-02-28 05:18] LABS: ABS Basophils 0 10^3/ul (0-0.2); ABS Eosinophils 0 10^3/ul (0-0.6); ABS Lymphocytes 1.3 10^3/ul (1.0-4.8); ABS Monocytes 0.5 10^3/ul (0-0.8); ABS Neutrophils 5.3 10^3/ul (1.5-7.7); ABS Nucleated RBC 0 10^3/ul; Eosinophil % 0.6 %; Hematocrit 40 % (42-52); Hemoglobin 13.3 g/dl (14.0-18.0); Lymphocyte % 18.1 %; Mean Corpuscular HGB Conc 33 g/dl (31-36); Mean Corpuscular Hemoglobin 31 pg (27-31); Mean Corpuscular Volume 94 fL (80-94); Nucleated Red Blood Cells % 0; Platelet Count 121 10^3/ul (150-450); Red Blood Count 4.23 10^6/ul (4.00-5.40); Red Cell Distribution Width 14 % (10.5-15); White Blood Count 7.2 10^3/ul (3.5-10.8)
[2018-02-28 05:34] LABS: BUN/Creatinine Ratio 17.1 (8-20); Calcium 9.1 mg/dL (8.6-10.3); EGFR African American 76.6 (>60); EGFR Non-African American 63.3 (>60); Potassium 4.4 mmol/L (3.5-5.0)
[2018-02-28] MEDS: ceFAZolin 1 GM VIAL(*) 1 GM in NS 0.9% 50 ML* 50 ML IVPB SCH ×2 (06:20→14:04)
--- NOTE | 2018-02-28 08:36 | PN ---
Subjective Date of Service: 02/28/18 Interval History: Pt is feeling well this AM. He has not had any further episodes of LOC. He denies pain at the pacemaker insertion site. No SOB. He has not had a BM since being at the hospital but he is not concerned. Objective Active Medications: Acetaminophen (Tylenol Tab*) 650 mg PO Q4H PRN PRN Reason: FEVER/PAIN Sodium Chloride (Ns 0.9% 1000 Ml*) 1,000 mls @ 125 mls/hr IV PER RATE VANDANA Last Admin: 02/28/18 01:16 Dose: 125 mls/hr Cefazolin Sodium 1 gm/ Sodium (Chloride) 50 mls @ 200 mls/hr IVPB Q8H VANDANA Stop: 02/28/18 14:14 Last Admin: 02/28/18 06:20 Dose: 200 mls/hr Vital Signs - 8 hr 02/28/18 02/28/18 02/28/18 01:00 01:01 01:30 Temperature Pulse Rate 100 87 71 Respiratory 19 20 10 Rate Blood Pressure 135/78 132/77 (mmHg) O2 Sat by Pulse 97 98 97 Oximetry 02/28/18 02/28/18 02/28/18 02:00 02:01 02:31 Temperature Pulse Rate 76 74 76 Respiratory 28 9 14 Rate Blood Pressure 141/87 126/66 (mmHg) O2 Sat by Pulse 97 98 96 Oximetry 02/28/18 02/28/18 02/28/18 03:00 03:01 03:30 Temperature Pulse Rate 70 75 74 Respiratory 36 20 34 Rate Blood Pressure 142/76 146/84 (mmHg) O2 Sat by Pulse 95 96 98 Oximetry 02/28/18 02/28/18 02/28/18 04:00 04:01 04:04 Temperature 98.0 F Pulse Rate 70 66 Respiratory 15 19 Rate Blood Pressure 140/78 (mmHg) O2 Sat by Pulse 97 96 96 Oximetry 02/28/18 02/28/18 02/28/18 04:30 05:00 05:30 Temperature Pulse Rate 69 96 67 Respiratory 11 33 21 Rate Blood Pressure 139/79 141/82 138/71 (mmHg) O2 Sat by Pulse 96 98 96 Oximetry 02/28/18 02/28/18 02/28/18 06:00 06:01 06:30 Temperature Pulse Rate 65 65 67 Respiratory 17 17 15 Rate Blood Pressure 140/71 134/75 (mmHg) O2 Sat by Pulse 97 97 96 Oximetry 02/28/18 02/28/18 02/28/18 06:38 07:00 07:01 Temperature Pulse Rate 68 72 68 Respiratory 16 17 13 Rate Blood Pressure 134/75 146/81 (mmHg) O2 Sat by Pulse 97 97 97 Oximetry 02/28/18 02/28/18 02/28/18 07:30 08:00 08:01 Temperature Pulse Rate 60 69 69 Respiratory 16 13 20 Rate Blood Pressure 149/81 142/69 (mmHg) O2 Sat by Pulse 97 97 97 Oximetry Oxygen Devices in Use Now: None Appearance: Elderly male sitting up in bed, NAD Eyes: No Scleral Icterus Ears/Nose/Mouth/Throat: Mucous Membranes Moist Respiratory: Symmetrical Chest Expansion and Respiratory Effort, Clear to Auscultation - anteriorly and at the lateral bases Cardiovascular: NL Sounds; No Murmurs; No JVD, RRR, No Edema Abdominal: NL Sounds; No Tenderness; No Distention Extremities: No Clubbing, Cyanosis Skin: No Nodules or Sclerosis, - - pacer insertion site covered with mepilex- scant sanguinous drainage on the dressing Neurological: Alert and Oriented x 3 Result Diagrams: 02/28/18 05:00 02/28/18 05:00 Microbiology and Other Data: Microbiology 02/27/18 17:28 Nasal Screen MRSA (PCR) - Final Nasal Mrsa Not Detected Assess/Plan/Problems-Billing Mr Jiménez is an 83 yo M who has a h/o s/p bioprosthetic valve replacement, HTN and BPH who presented to the ER with recurrent syncopal episodes with exertion and in the ER was found to be having periods of complete heart block with associated LOC and was admitted and taken urgently for dual chamber pacemaker. - Patient Problems (1) Complete heart block Current Visit: Yes Status: Acute Code(s): I44.2 - ATRIOVENTRICULAR BLOCK, COMPLETE SNOMED Code(s): 83017533 Comment: S/P dual chamber pacer yesterday. Management of pacer per Dr. Carvajal or cardiology group. Pacer rep has already been in to interrogate the pacer. Precautions will need to be reviewed with the patient and his . (2) Syncope Current Visit: Yes Status: Acute Code(s): R55 - SYNCOPE AND COLLAPSE SNOMED Code(s): 904580636 Comment: Secondary to complete heart block. Will get pt up and moving later today and monitor for symptoms. (3) HTN (hypertension) Current Visit: Yes Status: Acute Code(s): I10 - ESSENTIAL (PRIMARY) HYPERTENSION SNOMED Code(s): 00415662 Comment: BP was soft last evening but now improved. Will resume ACEI but hold amlodipine for now. Continue to monitor BP. (4) BPH (benign prostatic hyperplasia) Current Visit: Yes Status: Acute Code(s): N40.0 - BENIGN PROSTATIC HYPERPLASIA WITHOUT LOWER URINRY TRACT SYMP SNOMED Code(s): 315268068 Comment: Resume flomax. (5) DVT prophylaxis Current Visit: Yes Status: Acute Code(s): LJI0627 - SNOMED Code(s): 631597848 Comment: SCDs- if pt remains hospitalized through today will ask cardiology about starting SQ heparin. (6) Full code status Current Visit: Yes Status: Acute Code(s): Z78.9 - OTHER SPECIFIED HEALTH STATUS SNOMED Code(s): 349256013
[2018-02-28] MEDS ORDERED: Tamsulosin CAP* 0.4 MG PO SCH (09:00)
[2018-02-28] MEDS ORDERED: Aspirin EC TAB* 81 MG TAB.EC PO SCH (09:00)
[2018-02-28] MEDS ORDERED: Lisinopril TAB* 10 MG PO SCH (09:00)
--- NOTE | 2018-02-28 10:43 | PN ---
Subjective Date of Service: 02/28/18 - CC: syncope, resolved Interval History: Pt feels much better post pacer, patient's says he has improved. Medications Active Medications: Acetaminophen (Tylenol Tab*) 650 mg PO Q4H PRN PRN Reason: FEVER/PAIN Aspirin (Aspirin Ec Tab*) 81 mg PO DAILY [facility] Last Admin: 02/28/18 09:53 Dose: 81 mg Sodium Chloride (Ns 0.9% 1000 Ml*) 1,000 mls @ 125 mls/hr IV PER RATE [facility] Last Admin: 02/28/18 09:34 Dose: 125 mls/hr Cefazolin Sodium 1 gm/ Sodium (Chloride) 50 mls @ 200 mls/hr IVPB Q8H [facility] Stop: 02/28/18 14:14 Last Admin: 02/28/18 06:20 Dose: 200 mls/hr Lisinopril (Prinivil Tab*) 10 mg PO DAILY [facility] Last Admin: 02/28/18 09:53 Dose: 10 mg Tamsulosin HCl (Flomax Cap*) 0.4 mg PO DAILY [facility] Last Admin: 02/28/18 09:53 Dose: 0.4 mg Objective Vital Signs: Temp Pulse Resp BP Pulse Ox 98.8 F 80 22 139/74 97 02/28/18 08:30 02/28/18 09:01 02/28/18 09:01 02/28/18 09:01 02/28/18 09:01 Oxygen Devices in Use Now: None Appearance: lean male, no distress, color is much better c/w yesterday. Eyes: No Scleral Icterus, PERRLA Ears/Nose/Mouth/Throat: Clear Oropharnyx, Mucous Membranes Moist Neck: NL Appearance and Movements; NL JVP, Trachea Midline Respiratory: Symmetrical Chest Expansion and Respiratory Effort, Clear to Auscultation Cardiovascular: RRR - soft SM LUSB Abdominal: NL Sounds; No Tenderness; No Distention, No Hepatosplenomegaly Extremities: No Edema Skin: No Rash or Ulcers - incision w/o infection or hematoma or ecymosis. Neurological: Alert and Oriented x 3 Laboratory Results: 02/28/18 05:00 02/28/18 05:00 INR (Anticoag Therapy) 0.93 (0.77-1.02) 02/27/18 08:35 APTT 26.0 seconds (26.0-36.3) 02/27/18 08:35 Total Bilirubin 0.70 mg/dL (0.2-1.0) 02/27/18 08:35 AST 22 U/L (13-39) 02/27/18 08:35 ALT 17 U/L (7-52) 02/27/18 08:35 Alkaline Phosphatase 50 U/L (34-104) 02/27/18 08:35 Total Protein 6.8 g/dL (6.4-8.9) 02/27/18 08:35 Albumin 4.3 g/dL (3.2-5.2) 02/27/18 08:35 Globulin 2.5 g/dL (2-4) 02/27/18 08:35 Albumin/Globulin Ratio 1.7 (1-3) 02/27/18 08:35 TSH 3.27 mcIU/mL (0.34-5.60) 02/27/18 08:35 02/27/18 02/27/18 02/27/18 08:35 13:28 17:12 Troponin I 0.00 0.01 0.03 Diagnostic Imaging: CXR: good lead placement, no pneumothorax (02/27/18 and 02/28/18). Pacer interogation 02/28/18: P waves sensed 1.9 V, A lead impedance 380 Ohms, A pacing threshold 0.5 V@ 0.4 ms R waves sensed at 11.1 mV, V lead impedance 608 ms, V lead pacing threshold 0.5 V @ 0.4 ms. Monitor: NSR, PAC's, brief SVT, RV pacing 21%. . Assessment/Plan 83 yo with syncope and intermitant 3rd degree heart block, no escape now POD #1 dual chamber pacer implantation. Pacer is working well and CXR good. For PAC's and BP added metoprolol (and decreased the lisinopril added back this AM). Pt to ambulate with tentative d/c today. Needs Keflex 250 mg TID x 4 days Wound check with Dr Guan needed next week, office is looking now, pt should call office for an appointment/verify date/time.
[2018-02-28] MEDS: Metoprolol Succinate XL TAB* 25 MG PO SCH ×2 (11:19→12:00)
[2018-02-28 17:48] VITALS: BP 153/79
--- NOTE | 2018-02-28 21:53 | DS ---
CC: Dr. Guan; Dr. Borrero * DISCHARGE SUMMARY: DATE OF ADMISSION: 02/27/18 DATE OF DISCHARGE: 02/28/18 PRIMARY CARE PROVIDER: Dr. Borrero. RN RENAL: Dr. Guan. PRINCIPAL DIAGNOSIS: Complete heart block with loss of consciousness requiring dual-chamber pacemaker insertion. SECONDARY DIAGNOSES: 1. Aortic stenosis, status post bioprosthetic aortic valve replacement. 2. Hypertension. 3. B12 deficiency. DISCHARGE MEDICATIONS: 1. Aspirin 81 mg p.o. daily. 2. Amoxicillin 2000 mg p.o. once as needed for dental prophylaxis. 3. Flomax 0.4 mg p.o. daily. 4. Metoprolol XL 25 mg p.o. daily (new). 5. Lisinopril 5 mg p.o. daily (new). 6. Keflex 250 mg p.o. t.i.d. x13 doses. 7. Tylenol 650 mg p.o. q.4 hours p.r.n. pain. Discontinued medications: Benazepril/amlodipine. HOSPITAL COURSE: Mr. Jiménez is an 83-year-old male who presented to the emergency room on 02/27/18 after having yet again another syncopal episode. The patient had 3 syncopal episodes over the last 1 week. Two of these had been with exertion. The patient was walking back from the mailbox in the driveway when he went down without any warning. Ultimately, he was brought to the emergency room for evaluation. The patient was found to have complete heart block in the emergency room and Dr. Carvajal was urgently consulted. The patient went to catheterization lab, where he underwent urgent insertion of a dual-chamber pacemaker. The patient has done well since pacemaker insertion. He has not had any further episodes of loss of consciousness. He has been up and ambulating around the intensive care unit without any difficulty. Medication adjustments have been made per Dr. Carvajal's recommendations. The patient will need follow up with Dr. Guan next week. Pacemaker precautions have been reviewed with the patient and his . The patient will need to continue on Keflex x4 more days. At this point, the patient is felt to be stable for discharge home. He has been instructed to return to the emergency room if he has any further syncopal episodes or any other concerning symptoms. FOLLOWUP CONCERNS: The patient is being discharged to home today, 02/28/18. ACTIVITY LEVEL: As tolerated and per pacemaker insertion instructions. CONDITION ON DISCHARGE: Stable. TIME SPENT: Thirty-five minutes were spent discharging this patient. [id number]/[facility] #: [id number] MARY
[2018-03-01] MEDS ORDERED: Lisinopril TAB* 5 MG PO SCH (09:00)
== END 2018-02-28 18:00 | disposition home or self-care (01) | DRG 244 ==
LOC: ED 08:03 → ICU 13:11
PROVIDERS: ADMIT Internal Medicine; ATTEND Hospitalist
PROC: 02HK3JZ Insertion of Pacemaker Lead into Right Ventricle, Percutaneous Approach (ICD-10-PCS; 2018-02-27)
PROC: 02H63JZ Insertion of Pacemaker Lead into Right Atrium, Percutaneous Approach (ICD-10-PCS; 2018-02-27)
PROC: 0JH606Z Insertion of Pacemaker, Dual Chamber into Chest Subcutaneous Tissue and Fascia, Open Approach (ICD-10-PCS; principal; 2018-02-27 13:15)
DX: I44.2 Atrioventricular block, complete (principal); I10 Essential (primary) hypertension; E53.8 Deficiency of other specified B group vitamins; M50.30 Other cervical disc degeneration, unspecified cervical region; I34.0 Nonrheumatic mitral (valve) insufficiency; I44.0 Atrioventricular block, first degree; I49.1 Atrial premature depolarization; N40.0 Benign prostatic hyperplasia without lower urinary tract symptoms; W19.XXXA Unspecified fall, initial encounter; I49.3 Ventricular premature depolarization; Z79.82 Long term (current) use of aspirin; Z85.828 Personal history of other malignant neoplasm of skin; Z82.49 Family history of ischemic heart disease and other diseases of the circulatory system; Z95.2 Presence of prosthetic heart valve; Z80.8 Family history of malignant neoplasm of other organs or systems; Z72.89 Other problems related to lifestyle; Z98.42 Cataract extraction status, left eye; Z98.41 Cataract extraction status, right eye; Z87.891 Personal history of nicotine dependence; Y92.9 Unspecified place or not applicable
CPT/HCPCS: 33208; 36415; 70450; 71045; 71046; 72125; 80048; 80053; 81003; 81015; 83605; 83735; 84443; 84484; 85025; 85610; 85730; 86618; 87086; 87641; 93005; 93306; 99156; 99157; 99285; A9270-GY; C1785; C1898; J0690; J2250; J3010

== ENCOUNTER 2022-03-31 16:59 | Inpatient (IN) ==
[2022-03-31] MEDS ORDERED: Lactated Ringers 1000 ml BAG 1,000 ML IV ONE ×3 (17:48→21:23)
[2022-03-31 18:31] LABS: Venous Bicarbonate HCO3 23.9 mmol/L (24-28)
[2022-03-31 18:36] LABS: Urine Appearance Clear; Urine Bilirubin Negative (Negative); Urine Blood 2+ (Negative); Urine Color Yellow; Urine Glucose Negative (Negative); Urine Ketones Negative (Negative); Urine Nitrite Negative (Negative); Urine Protein 1+(30 mg/dL) (Negative); Urine Specific Gravity 1.019 (1.002-1.030); Urine Urobilinogen Negative (Negative)
[2022-03-31 18:42] LABS: Hematocrit 37 % (42-52); Hemoglobin 11.8 g/dL (14.0-18.0); Mean Corpuscular HGB Conc 32 g/dL (31-36); Mean Corpuscular Hemoglobin 32 pg (27-31); Mean Corpuscular Volume 98 fL (80-94); Red Blood Count 3.72 10^6 /uL (4.18-5.48); Red Cell Distribution Width 17 % (10-15); White Blood Count 4.6 10^3/uL (3.5-10.8)
[2022-03-31 18:44] LABS: Urine Bacteria Absent (Absent); Urine Red Blood Cell 2+(6-10/hpf) (Absent); Urine Squamous Epithelial Cell Present (Absent); Urine White Blood Cell Trace(0-5/hpf) (Absent)
[2022-03-31 18:55] LABS: High Sens Troponin Baseline 16 pg/mL (<20)
[2022-03-31 19:02] LABS: ALT 40 U/L (7-52); AST 56 U/L (13-39); Albumin 3.6 g/dL (3.2-5.2); Albumin/Globulin Ratio 1.6 (1-3); Alkaline Phosphatase 100 U/L (35-149); Blood Urea Nitrogen 50 mg/dL (6-24); CO2 Carbon Dioxide 27 mmol/L (22-32); Calcium 9.6 mg/dL (8.6-10.3); Creatine Kinase 360 U/L (10-223); Creatinine, Serum 1.78 mg/dL (0.67-1.17); Globulin 2.3 g/dL (2-4); Glucose 85 mg/dL (70-100); Total Protein 5.9 g/dL (6.4-8.9); eGFR CKD-EPI 36.5 (>60)
[2022-03-31 19:03] LABS: Anion Gap 5 mmol/L (2-11); Chloride 115 mmol/L (101-111); Potassium 5.1 mmol/L (3.5-5.0); Sodium 147 mmol/L (135-145)
[2022-03-31 20:12] LABS: ABS Eosinophils 0.1 10^3/ul (0-0.6); ABS Lymphocytes 0.5 10^3/ul (1.0-4.8); ABS Monocytes 0.3 10^3/ul (0-0.8); ABS Neutrophils 3.7 10^3/ul (1.5-7.7); Eosinophil % 1.3 %; Lymphocyte % 10.6 %; Nucleated Red Blood Cells % 0.2
[2022-03-31 20:23] LABS: High Sensitivity Troponin 1 Hr 13 pg/mL (<20)
[2022-03-31 20:27] LABS: Mean Platelet Volume 11.5 fL (7.4-10.4); Platelet Count 43 10^3/uL (150-450)
[2022-03-31 20:33] LABS: Urine Appearance Cloudy; Urine Bilirubin Negative (Negative); Urine Blood 2+ (Negative); Urine Color Yellow; Urine Glucose Negative (Negative); Urine Ketones Negative (Negative); Urine Nitrite Negative (Negative); Urine Protein 1+(30 mg/dL) (Negative); Urine Specific Gravity 1.019 (1.002-1.030); Urine Urobilinogen Negative (Negative)
[2022-03-31 20:56] LABS: Urine Bacteria Absent (Absent); Urine Red Blood Cell 3+(>10/hpf) (Absent); Urine Squamous Epithelial Cell Present (Absent); Urine White Blood Cell 2+(11-20/hpf) (Absent)
[2022-03-31] MEDS ORDERED: Enoxaparin 30 MG/0.3 ML SYR SUBCUT SCH (21:00)
[2022-03-31 21:44] LABS: Vitamin B12 > 1450 pg/mL (180-914)
[2022-03-31 21:52] LABS: Magnesium 2.4 mg/dL (1.9-2.7)
[2022-03-31 22:06] LABS: TSH Ultra Thyroid Stim Horm 10.43 mcIU/mL (0.34-5.60)
[2022-04-01 01:25] LABS: ABS Eosinophils 0.1 10^3/ul (0-0.6); ABS Lymphocytes 0.5 10^3/ul (1.0-4.8); ABS Monocytes 0.4 10^3/ul (0-0.8); ABS Neutrophils 4.2 10^3/ul (1.5-7.7); Eosinophil % 1.7 %; Hematocrit 35 % (42-52); Hemoglobin 11.3 g/dL (14.0-18.0); Lymphocyte % 10.3 %; Mean Corpuscular HGB Conc 33 g/dL (31-36); Mean Corpuscular Hemoglobin 32 pg (27-31); Mean Corpuscular Volume 98 fL (80-94); Nucleated Red Blood Cells % 0.6; Platelet Count 44 10^3/uL (150-450); Red Blood Count 3.56 10^6 /uL (4.18-5.48); Red Cell Distribution Width 16 % (10-15); White Blood Count 5.2 10^3/uL (3.5-10.8)
[2022-04-01] MEDS: Nystatin TOP POWDER 15 GM BTL TOPICAL SCH ×2 (01:31→10:58)
[2022-04-01 01:51] LABS: Calcium 9.4 mg/dL (8.6-10.3); Creatinine, Serum 1.82 mg/dL (0.67-1.17); Magnesium 2.2 mg/dL (1.9-2.7); eGFR CKD-EPI 35.5 (>60)
[2022-04-01] MEDS ORDERED: D5W 1000 ml BAG 1,000 ML IV SCH (04:00)
[2022-04-01 05:05] LABS: Folate 10.54 ng/mL (5.90-24.80)
[2022-04-01 06:23] LABS: ABS Eosinophils 0.1 10^3/ul (0-0.6); ABS Lymphocytes 0.6 10^3/ul (1.0-4.8); ABS Monocytes 0.5 10^3/ul (0-0.8); ABS Neutrophils 4.1 10^3/ul (1.5-7.7); Eosinophil % 1.6 %; Hematocrit 34 % (42-52); Hemoglobin 11.1 g/dL (14.0-18.0); Lymphocyte % 10.6 %; Mean Corpuscular HGB Conc 33 g/dL (31-36); Mean Corpuscular Hemoglobin 32 pg (27-31); Mean Corpuscular Volume 99 fL (80-94); Mean Platelet Volume 12.4 fL (7.4-10.4); Nucleated Red Blood Cells % 0.6; Platelet Count 44 10^3/uL (150-450); Red Blood Count 3.46 10^6 /uL (4.18-5.48); Red Cell Distribution Width 16 % (10-15); White Blood Count 5.2 10^3/uL (3.5-10.8)
[2022-04-01 06:29] LABS: Calcium 9.3 mg/dL (8.6-10.3); Magnesium 2.1 mg/dL (1.9-2.7)
[2022-04-01 06:30] LABS: Potassium 5.1 mmol/L (3.5-5.0)
[2022-04-01 06:35] LABS: Creatinine, Serum 1.94 mg/dL (0.67-1.17); eGFR CKD-EPI 32.9 (>60)
[2022-04-01] MEDS ORDERED: Lactated Ringers 1000 ml BAG 1,000 ML IV SCH ×2 (09:00→22:00)
[2022-04-01] MEDS ORDERED: Cefepime 1 GM in Dextrose 1 GM/50 ML BAG IV SCH (10:00)
[2022-04-01] MEDS ORDERED: Vancomycin per Pharmacy 1 EA NOTE FOLLOW UP SCH (10:00)
[2022-04-01] MEDS ORDERED: Cefepime ADVAN 1 GM in NS 0.9% 50 ML 50 ML IVPB SCH (10:00)
[2022-04-01 10:09] LABS: C Reactive Protein 10.05 mg/L (<8.01)
[2022-04-01 10:14] LABS: PCO2 Arterial 48 mmHg (35-45); PO2 Arterial 85 mmHg (80-100)
[2022-04-01] MEDS ORDERED: Vancomycin 1000 MG in NS 0.9% 250 ML IVPB SCH (11:00)
[2022-04-01] MEDS ORDERED: Furosemide 40 mg/4 ml IV VIAL IV ONE (11:04)
[2022-04-01 11:08] LABS: Erythrocyte Sed Rate 11 mm/Hr (0-19)
[2022-04-01] MEDS ORDERED: Furosemide 40 mg/4 ml IV VIAL ONE (11:08)
[2022-04-01] MEDS ORDERED: Ondansetron ODT 4 mg TAB 4 MG TAB SL PRN (13:47)
[2022-04-01] MEDS: Atropine 1% (ORAL/SL) 15 ML BTL SL PRN ×4 (15:46→23:45)
[2022-04-01] MEDS: Morphine ORAL CONCENTRATE 5 MG/0.25 ML ORAL.SYRIN SL PRN ×2 (19:43→23:44)
[2022-04-02] MEDS: Morphine ORAL CONCENTRATE 5 MG/0.25 ML ORAL.SYRIN SL PRN ×8 (02:19→23:45)
[2022-04-02] MEDS: Atropine 1% (ORAL/SL) 15 ML BTL SL PRN ×9 (02:20→23:46)
[2022-04-03] MEDS: Morphine ORAL CONCENTRATE 5 MG/0.25 ML ORAL.SYRIN SL PRN ×7 (02:36→22:17)
[2022-04-03] MEDS: Atropine 1% (ORAL/SL) 15 ML BTL SL PRN ×7 (02:37→22:18)
[2022-04-03] MEDS: Nystatin TOP POWDER 15 GM BTL TOPICAL SCH (12:43)
[2022-04-04] MEDS: Morphine ORAL CONCENTRATE 5 MG/0.25 ML ORAL.SYRIN SL PRN ×7 (00:35→22:32)
[2022-04-04] MEDS: Atropine 1% (ORAL/SL) 15 ML BTL SL PRN ×7 (00:36→22:33)
[2022-04-04] MEDS ORDERED: Vancomycin Trough Check NOTE FOLLOW UP ONE (10:30)
[2022-04-04 12:46] VITALS: BP 129/62
[2022-04-05] MEDS: Morphine ORAL CONCENTRATE 5 MG/0.25 ML ORAL.SYRIN SL PRN (01:03)
[2022-04-05] MEDS: Atropine 1% (ORAL/SL) 15 ML BTL SL PRN (01:04)
== END 2022-04-05 01:45 | disposition expired | DRG 189 ==
LOC: EDHOLD 16:59 → ED 16:59 → SUATTDRO 20:57 → MEDTELE 23:52
PROVIDERS: ADMIT Internal Medicine; ATTEND Hospitalist